=== PATIENT | female | born 1990 | race Asian ===

== ENCOUNTER 2017-08-22 09:30 | Emergency (ER) | payer SELFPAY ==
[~2017-08-22] VITALS: Ht 162.6 cm; Wt 70.8 kg
[2017-08-22 09:44] VITALS: BP 122/52; Ht 162.6 cm; Wt 70.8 kg
[2017-08-22 11:22] LABS: BASOPHIL % 0.4 % (0-2); PLATELET COUNT 197 x10^3mcL (130-400); RED CELL DISTRIBUTION WIDTH 12.9 % (11.5-14.5)
== END 2017-08-22 11:49 | disposition home or self-care (01) ==
LOC: ED 09:30
PROVIDERS: Emergency Medicine
DX: N39.0 Urinary tract infection, site not specified (principal)
CPT/HCPCS: 36415; J1885